=== PATIENT | male | born 1955 | race Caucasian/White ===

== ENCOUNTER 2017-04-17 07:54 | Emergency (ER) | payer OTHER ==
[2017-04-17] MEDS ORDERED: Ketorolac 30 MG/ML SDV IVPUSH ONE (08:57)
[2017-04-17] MEDS ORDERED: Sodium Chloride 0.9% 1,000 ML IV ONE (08:57)
[2017-04-17] MEDS ORDERED: Ketorolac 30 MG/ML SDV ONE (09:15)
--- NOTE | 2017-04-17 11:03 | ER ---
HISTORY OF PRESENT ILLNESS: A 62-year-old male who comes in with complaints of mid back pain that started about 5 a.m. this morning. It has been as bad as 6 on a 10 scale. Right now, it is only about 1 or 2 on a 10 scale. It seems to be radiating around the left flank into the groin area. The patient denies running a fever. He denies any recent falls or injuries. He states that yesterday he traveled up here from [place] on a fishing trip. He has not been running a fever, but he has felt chilled a couple of times. He has not noticed any blood in his urine. CURRENT MEDS: None. PAST MEDICAL HISTORY: Healthy. OBJECTIVE: GENERAL APPEARANCE: The patient is awake and alert. No respiratory distress. VITAL SIGNS: Reviewed. He is afebrile. Blood pressure 123/101. Lungs: Clear. Abdomen is soft. There is minimal discomfort on the left lateral side of the abdomen with palpation. Bowel sounds are present. There is no guarding. There is CVA tenderness on the left side with percussion. SKIN: Warm and dry. CARDIAC: Heart sounds distinct without murmurs. LABS: CBC shows normal white count. Neutrophils are slightly elevated. CMP is normal. UA at this point is pending. IMAGING: CT of the abdomen and pelvis reveals a 2 mm kidney stone close to the kidney on the left side with mild hydronephrosis. He also has some mesenteric panniculitis symptoms or signs showing up on the CT, although the patient is not having any symptoms in this area. DIAGNOSIS: Kidney stone, left side. TREATMENT PLAN: The patient was given a liter of normal saline. I gave him 30 mg of Toradol IV and this resolved his pain completely. I will discharge the patient. He will be on p.o. Toradol 10 mg tablets one tablet every 6 to 8 hours as needed, giving 15 tablets. I will [facility] give him [place] 5/325mg, 1 tab q 6 hours prn for pain #4 tabs. He is to increase his water intake and follow up p.r.n. if his symptoms should get worse. A strainer was also given to the patient. I explained to the patient that the size of the stone should pass without any further procedures or treatment needed. If his symptoms do change or his condition does get worse, he is to follow up as needed. I do want the patient to follow up with his primary provider when he gets back home to be seen for recheck, and he will be given copies of his lab results and CT report here to take with. The patient has no further questions. BRINA/GARRETT /[id number] VICKI
--- NOTE | 2017-04-17 17:19 | CT ---
DATE OF SERVICE: 04/17/17 CLINICAL DATA: Flank pain - left side. UNENHANCED ABDOMEN AND PELVIC CT: Multislice acquisition through the abdomen and pelvis without IV or oral contrast was performed. No priors. There are mild atelectatic changes of the dependent portion of both lower lungs. The lung bases are otherwise clear. The unenhanced liver appears normal. No focal hepatic lesions. The gallbladder appears normal. The spleen appears normal. The pancreas appears normal. The right and left adrenals appear normal. There is a 2 mm distal ureteral calculus on the left located in the distal left ureter at the ureterovesical junction. There is mild hydronephrosis and hydroureter proximal to it consistent with obstruction. The kidneys and collecting systems are otherwise unremarkable. No nephrocalcinosis or nephrolithiasis. No hydronephrosis on the right. There is a small amount of fluid within the bladder. It appears normal. The appendix is not dilated. No evidence of appendicitis. The prostate is enlarged. There are calcifications within the prostate consistent with chronic prostatitis. There is a small umbilical hernia containing fat. There is mild fat stranding in the root of the mesentery. Significance uncertain. No free air. No free fluid. No dilated loops of bowel. No adenopathy. There are scattered mesenteric nodes. They are not enlarged. No other significant findings. IMPRESSION: A 2 mm distal ureteral calculus on the left at ureterovesical junction with obstruction. [id number] MTDD
== END 2017-04-17 10:30 | disposition home or self-care (01) ==
LOC: LB.ED 07:54
DX: N13.2 Hydronephrosis with renal and ureteral calculous obstruction (principal)
CPT/HCPCS: 36415; 74176; 80053; 81001; 85025; 96361; 96374; 99284-25; J1885; J7040